=== PATIENT | male | born 1985 | race Caucasian/White ===

== ENCOUNTER 2018-02-09 13:09 | Emergency (ER) | payer MEDICARE ==
[2018-02-09] MEDS: IV NORMAL SALINE 1000ML BAG 1,000 ML IV (13:44)
[2018-02-09 13:48] LABS: ADD MAN DIFF? NO
[2018-02-09 13:49] LABS: BASO # 0.1 x10^3/uL (0.0-0.2); BASO % 1 % (0-3); EOS # 0.1 x10^3/uL (0.0-0.7); EOS % 1 % (0-3); HEMOGLOBIN 15.5 g/dL (13.0-17.5); LYMPH # 1.2 x10^3/uL (1.0-4.8); LYMPH % 14 % (24-48); MEAN CORPUSCULAR HEMOGLOBIN 32 pg (25-35); MEAN CORPUSCULAR HGB CONC 35 g/dL (31-37); MEAN CORPUSCULAR VOLUME 90 fL (79-100); MONO # 0.8 x10^3/uL (0.0-1.1); MONO % 10 % (0-9); NEUT # 6.5 x10^3uL (1.8-7.7); NEUT % 75 % (31-73); PLATELET COUNT 322 x10^3/uL (140-400); RED BLOOD COUNT 4.89 x10^6/uL (4.30-5.70); RED CELL DISTRIBUTION WIDTH 12.9 % (11.5-14.5); WHITE BLOOD COUNT 8.7 x10^3/uL (4.0-11.0)
[2018-02-09 13:58] LABS: ANION GAP 6 (6-14); BLOOD UREA NITROGEN 8 mg/dL (8-26); BUN/CREATININE RATIO 10 (6-20); CALCIUM 8.6 mg/dL (8.5-10.1); CARBON DIOXIDE 32 mmol/L (21-32); CHLORIDE 102 mmol/L (98-107); CREATININE 0.8 mg/dL (0.7-1.3); GFR 111.3; GLUCOSE 93 mg/dL (70-99); POTASSIUM 3.6 mmol/L (3.5-5.1); SODIUM 140 mmol/L (136-145)
[2018-02-09 14:04] LABS: ALBUMIN 3.6 g/dL (3.4-5.0); ALK PHOS 47 U/L (46-116); ALT (SGPT) 17 U/L (16-63); AST (SGOT) 13 U/L (15-37); CREATINE KINASE 107 U/L (39-308); TOTAL PROTEIN 7.1 g/dL (6.4-8.2)
== END 2018-02-09 15:36 | disposition home or self-care (01) ==
LOC: ER 13:09
DX: R53.83 Other fatigue (principal); E86.0 Dehydration; F12.10 Cannabis abuse, uncomplicated; F15.10 Other stimulant abuse, uncomplicated
CPT/HCPCS: 36415; 80053; 82550; 85025; 96360; 99284-25; J7030

== ENCOUNTER 2018-04-08 15:36 | Emergency (ER) | payer MEDICARE ==
[~2018-04-08] VITALS: Ht 182.9 cm; Wt 72.6 kg
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
[2018-04-08 16:43] LABS: BASO % 1 % (0-3); EOS # 0.3 x10^3/uL (0.0-0.7); EOS % 5 % (0-3); HEMATOCRIT 41.9 % (39.0-53.0); HEMOGLOBIN 14.3 g/dL (13.0-17.5); LYMPH # 1.3 x10^3/uL (1.0-4.8); LYMPH % 18 % (24-48); MEAN CORPUSCULAR HEMOGLOBIN 31 pg (25-35); MEAN CORPUSCULAR HGB CONC 34 g/dL (31-37); MEAN CORPUSCULAR VOLUME 91 fL (79-100); MONO # 0.6 x10^3/uL (0.0-1.1); MONO % 9 % (0-9); NEUT # 4.7 x10^3uL (1.8-7.7); NEUT % 68 % (31-73); PLATELET COUNT 347 x10^3/uL (140-400); RED BLOOD COUNT 4.63 x10^6/uL (4.30-5.70); RED CELL DISTRIBUTION WIDTH 13.4 % (11.5-14.5); WHITE BLOOD COUNT 6.9 x10^3/uL (4.0-11.0)
[2018-04-08] MEDS ORDERED: IV NORMAL SALINE 1000ML BAG 1,000 ML IV ONE (16:45)
[2018-04-08 16:51] LABS: CALCIUM 9.3 mg/dL (8.5-10.1); CREATININE 0.8 mg/dL (0.7-1.3); GFR 111.3; POTASSIUM 3.3 mmol/L (3.5-5.1)
[2018-04-08 16:57] LABS: ALBUMIN 3.5 g/dL (3.4-5.0); ALBUMIN/GLOBULIN RATIO 0.9 (1.0-1.7); TOTAL PROTEIN 7.2 g/dL (6.4-8.2)
[2018-04-08 20:00] VITALS: BP 104/60
[2018-04-08] MEDS ORDERED: POTASSIUM CHLORIDE 20 MEQ TABLET.ER. PO ONE (21:30)
== END 2018-04-08 22:22 | disposition home or self-care (01) ==
LOC: ER 15:36
DX: F15.10 Other stimulant abuse, uncomplicated (principal); E87.6 Hypokalemia; Z99.3 Dependence on wheelchair
CPT/HCPCS: 36415; 80053; 85025; 96360; 99284; J7030

== ENCOUNTER 2020-10-27 04:18 | Emergency (ER) | payer MEDICARE ==
[~2020-10-27] VITALS: Ht 182.9 cm; Wt 72.7 kg
[2020-10-27 04:20] VITALS: BP 127/76
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
--- NOTE | 2020-10-27 05:16 | RAD ---
CT HEAD AND MAXILLOFACIAL WO History: Reason: fall / Spl. Instructions: / History: . Pain Comparison: None. Technique: Noncontrast CT imaging was performed of the head and maxillofacial. Coronal and sagittal r econstructions were performed. Exposure: One or more of the following individualized dose reduction techniques were utilized for thi s examination: 1. Automated exposure control 2. Adjustment of the mA and/or kV according to patient size 3. Use of iterative reconstruction technique. Findings: Head CT: No intracranial hemorrhage. No mass effect. No hydrocephalus. Extra-axial spaces are unrema rkable. Maxillofacial CT: Acute comminuted bilateral nasal bone fracture. There is overlying paranasal soft t issue swelling. Orbits are unremarkable. Left sphenoid sinus mucous retention cyst or polyp. Mastoid air cells are cl ear. No acute calvarial fracture. Postoperative changes cervical spine. Left mandibular molar carious dentition with periapical lucency . Impression: Head CT: 1. No acute intracranial abnormality. Maxillofacial CT: 1. Acute bilateral nasal bone fracture with overlying soft tissue swelling. Electronically signed by: Moises Bridges DO (10/27/2020 5:13 AM) [facility]
== END 2020-10-27 05:35 | disposition home or self-care (01) ==
LOC: ER 04:18
DX: S02.2XXA Fracture of nasal bones, initial encounter for closed fracture (principal); S00.83XA Contusion of other part of head, initial encounter; F17.200 Nicotine dependence, unspecified, uncomplicated; W18.39XA Other fall on same level, initial encounter; Y93.89 Activity, other specified; Y92.89 Other specified places as the place of occurrence of the external cause; Y99.8 Other external cause status
CPT/HCPCS: 70450; 70486; 99285-25

== ENCOUNTER 2021-05-29 14:18 | Emergency (ER) | payer MEDICARE ==
[~2021-05-29] VITALS: Ht 182.9 cm; Wt 77.2 kg
[2021-05-29] MEDS ORDERED: IV NORMAL SALINE 1000ML BAG 1,000 ML IV ONE (14:45)
--- NOTE | 2021-05-29 15:35 | RAD ---
XR CHEST 1V History: Reason: fall / Spl. Instructions: / History: . Pain Comparison: None. Findings: No consolidation or pleural effusion. Normal heart size. No pneumothorax. Postop changes cervical spi ne. Impression: 1. No acute cardiopulmonary process. Electronically signed by: Moises Bridges DO (05/29/2021 3:33 PM) [facility]
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
--- NOTE | 2021-05-29 16:06 | RAD ---
Exam: CT head and cervical spine INDICATION: Fall TECHNIQUE: Sequential axial images through the head and cervical spine were obtained without the admi nistration of IV contrast. Exposure: One or more of the following in the visualized dose reduction techniques were utilized for this examination: 1. Automated exposure control 2. Adjustment of the MA and/or KV according to patient size 3. Use of iterative of reconstructive technique Comparisons: 10/27/2020 FINDINGS: Head: No focal parenchymal lesion or hemorrhage is identified. There is no midline shift or sulcal effaceme nt. No acute vascular territory infarction is identified. Hwang-white distinction is preserved. The ventricular system is within normal limits without compression hydrocephalus. The basal cisterns are well maintained. Extra cranial soft tissue scalp contusion overlying the right frontal region without underlying osseo us or intracranial abnormality. The visualized portions of the paranasal sinuses and mastoid air cell s are well-pneumatized. No acute fractures. Cervical spine: Posterior cervical fusion hardware C1-C2 as well as C5 C7 with transition facet screws and interconne cting vertical stabilization rods. Additionally there is anterior cervical fusion hardware from C5 th rough C7. Fracture to the cervical spine is is not identified. No significant spondylotic change in cervical spine. Visualized paraspinal soft tissues are unremarkable. IMPRESSION: 1. Extra cranial soft tissue scalp contusion overlying the right frontal region without underlying o sseous or intracranial abnormality. 2. Negative CT C-spine for acute traumatic injury. Electronically signed by: Amparo Ritter MD (05/29/2021 4:04 PM) JENNIFER
[2021-05-29 16:19] LABS: BASO # 0.1 x10^3/uL (0.0-0.2); BASO % 1 % (0-3); EOS # 0.3 x10^3/uL (0.0-0.7); EOS % 5 % (0-3); HEMATOCRIT 43.6 % (39.0-53.0); LYMPH # 1.4 x10^3/uL (1.0-4.8); LYMPH % 23 % (24-48); MEAN CORPUSCULAR HEMOGLOBIN 31 pg (25-35); MEAN CORPUSCULAR HGB CONC 35 g/dL (31-37); MEAN CORPUSCULAR VOLUME 90 fL (79-100); MONO # 0.6 x10^3/uL (0.0-1.1); MONO % 10 % (0-9); NEUT # 3.5 x10^3/uL (1.8-7.7); NEUT % 61 % (31-73); PLATELET COUNT 296 x10^3/uL (140-400); RED BLOOD COUNT 4.87 x10^6/uL (4.30-5.70); RED CELL DISTRIBUTION WIDTH 13.7 % (11.5-14.5); WHITE BLOOD COUNT 5.8 x10^3/uL (4.0-11.0)
[2021-05-29 16:30] LABS: CALCIUM 8.4 mg/dL (8.5-10.1); CREATININE 0.7 mg/dL (0.7-1.3); GFR 127.6; POTASSIUM 3.5 mmol/L (3.5-5.1)
[2021-05-29 16:36] LABS: ALBUMIN 3.5 g/dL (3.4-5.0); MAGNESIUM 1.9 mg/dL (1.8-2.4); TOTAL BILIRUBIN 0.9 mg/dL (0.2-1.0)
[2021-05-29 16:43] LABS: ACETAMIN < 2.0 mcg/ml (10-30); ETHANOL < 10 mg/dL (0-10); SALIC 2.7 mg/dL (2.8-20.0)
[2021-05-29 16:43] LABS: BILIRUBIN,URINE NEGATIVE (NEG); CLARITY,URINE CLEAR; COLOR,URINE YELLOW; NITRITE,URINE NEGATIVE (NEG); PH,URINE 6.5 (<5.0-8.0); PROTEIN,URINE NEGATIVE (NEG-TRACE)
[2021-05-29 16:50] LABS: BARBITURATES NEG (NEG); BENZODIAZEPINES NEG (NEG); CANNABINOIDS NEG (NEG); COCAINE NEG (NEG); METHADONE NEG (NEG); OPIATES NEG (NEG); PHENCYCLIDINE NEG (NEG)
[2021-05-29 17:01] LABS: BACTERIA,URINE 0 /HPF (0-FEW); RBC,URINE 0 /HPF (0-2)
[2021-05-29 17:02] LABS: AMPHETAMINE/METHAMPHETAMINE POS (NEG)
[2021-05-29 18:26] VITALS: BP 112/62
--- NOTE | 2021-05-30 00:17 | EKG ---
[facility] [address] [place] [address] Test Date: 2021-05-29 Test Time: 16:18:00 Pat Name: GARCIA HEAD Department: Room: Gender: [employer] Adf Developer: : 1985 Requested By: MARYLU TRAVIS Order Number: [id number] Reading MD: Brendon Briceno Measurements Intervals [place] Rate: 68 P: 51 ME: 134 QRS: 66 QRSD: 84 T: 45 QT: 394 QTc: 419 Interpretive Statements SINUS RHYTHM ATRIAL PREMATURE COMPLEX(ES) OTHERWISE NORMAL ECG RI6.02 No previous ECG available for comparison Electronically Signed On 05-31-2021 9:28:11 MATERIAL SPREADER by Brendon Briceno
== END 2021-05-29 19:02 | disposition home or self-care (01) ==
LOC: ER 14:18
DX: S01.81XA Laceration without foreign body of other part of head, initial encounter (principal); S13.9XXA Sprain of joints and ligaments of unspecified parts of neck, initial encounter; S00.03XA Contusion of scalp, initial encounter; F15.10 Other stimulant abuse, uncomplicated; F17.210 Nicotine dependence, cigarettes, uncomplicated; W18.39XA Other fall on same level, initial encounter; Y93.89 Activity, other specified; Y92.89 Other specified places as the place of occurrence of the external cause; Y99.8 Other external cause status
CPT/HCPCS: 12013; 36415; 70450; 71045; 72125; 80053; 80307; 80329; 81001; 83605; 83690; 83735; 83880; 84145; 84484; 85025; 87040; 87086; 93005; 96360; 96361; 99285; G0480; J7030; P9612